=== PATIENT | male | born 1985 | race Caucasian/White ===

== ENCOUNTER 2018-06-26 00:37 | Emergency (ER) | payer OTHER ==
[2018-06-26] MEDS ORDERED: Ketorolac Tromethamine 60 MG/2 ML VIAL ONE (02:32)
--- NOTE | 2018-06-26 07:19 | OP ---
DATE OF PROCEDURE: 06/26/2018 at 0248 hours. PREPROCEDURE DIAGNOSIS: Displaced small finger metacarpal fracture with probable cast constriction a nd edema, subacute. POSTOPERATIVE DIAGNOSIS: Displaced small finger metacarpal fracture with probable cast constriction and edema, subacute. PROCEDURES PERFORMED: 1. Application of bulky hand dressing. 2. Application of palmar short arm static splint, right wrist and metacarpal region. ANESTHESIA: None. DESCRIPTION OF PROCEDURE: After successful counseling the patient, evaluation which showed no compar tment syndrome and resolving pain, the patient had 2 packs of 4 x 4s with 4 x 4s stacked into his web spaces from the first all the way through fourth to the level of the DIP joint of the small finger. Then, two Kerlix were placed to fill the space as well in a bulky-type hand dressing. We had him fl ex and extend his PIP joints and MP joints, but he still could and his pain was gone. Again, he had no stretch pain both before and after this application. We then applied a short arm splint in a palmar position, did not place him in an ulnar gutter splint because it gives him problems before. Applied Enmanuel wrap very loosely and again he was able to manipul ate and move the interphalangeal joints without pain and his numbness is gone. He had normal 2-point discrimination in color with pink digit and one second refill after the procedure.
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
== END 2018-06-26 03:08 | disposition home or self-care (01) ==
LOC: ERS 00:37
DX: S62.306A Unspecified fracture of fifth metacarpal bone, right hand, initial encounter for closed fracture (principal); F90.9 Attention-deficit hyperactivity disorder, unspecified type; I10 Essential (primary) hypertension; F17.290 Nicotine dependence, other tobacco product, uncomplicated; W22.8XXA Striking against or struck by other objects, initial encounter
CPT/HCPCS: 96372; 96374; J1885

== ENCOUNTER 2018-07-04 07:59 | Day surgery (SDC) | payer OTHER ==
[2018-07-02 10:40] VITALS: BMI 30.3
[2018-07-04 08:42] LABS: #Eosinphils 0.2 thou/uL (0.0-0.7); #Lymphocytes 2.4 thou/uL (1.20-3.40); #Monocytes 0.5 thou/uL (0.11-0.59); #Neutrophils 5.6 thou/uL (1.40-6.50); %Basophils 0.5 % (0.0-1.0); %Lymphocytes 27.3 % (21.0-51.0); %Monocytes 5.7 % (0.0-10.0); %Neutrophils 64.4 % (42.0-75.0); Hemoglobin 17.2 g/dL (14.0-18.0); Mean Corpuscular HGB CONC 30.9 g/dL (32.0-36.0); Mean Corpuscular Hemoglobin 27.3 pg (27.0-31.0); Mean Corpuscular Volume 88.2 fL (78.0-98.0); Mean Platelet Volume 7.7 fL (7.4-10.4); Platelet Count 205 thou/uL (130-400); RBC Distribution Width 13.9 % (11.5-14.5); White Blood Cell (WBC) Count 8.7 thou/uL (4.8-10.8)
[2018-07-04] MEDS ORDERED: CEFAZOLIN 2 GM/50 ML BAG ONE (09:12)
[2018-07-04] MEDS ORDERED: Ketorolac Tromethamine 30 MG/ML VIAL ONE ×2 (12:03→13:26)
[2018-07-04] MEDS ORDERED: Dexamethasone 20 MG/5 ML VIAL ONE (12:03)
[2018-07-04] MEDS ORDERED: PROPOFOL 200 MG/20 ML VIAL ONE (12:03)
[2018-07-04] MEDS ORDERED: Ondansetron PF 4 MG/2 ML Vial ONE (12:03)
[2018-07-04] MEDS ORDERED: Lidocaine 1% PF 5 ML VIAL ONE (12:03)
[2018-07-04] MEDS ORDERED: Fentanyl 100 MCG/2 ML VIAL ONE ×3 (12:09→13:45)
[2018-07-04] MEDS ORDERED: HYDROmorphone 2 MG/ML VIAL ONE (13:38)
[2018-07-04] MEDS ORDERED: diphenhydrAMINE 50 MG/ML VIAL ONE (14:08)
--- NOTE | 2018-07-06 17:37 | RAD ---
INTRAOPERATIVE FLUOROSCOPY NINE VIEWS: Exposure: 1.12 mGy*cm^2, 1.0 minute. FINDINGS: Nine fluoroscopic views demonstrate placement of T wires involving the distal fifth metacarpal. IMPRESSION: K wire placement as above. POS: CYNTHIA
--- NOTE | 2018-07-08 09:26 | OP ---
DATE OF SURGERY: 07/04/2018 PREOPERATIVE DIAGNOSIS: Displaced right small finger metacarpal fracture. OPERATIVE PROCEDURE: Closed reduction and pinning, right small finger metacarpal neck fracture. BLOOD LOSS: Less than 1 mL. SPECIMEN: None. C-ARM USED: Yes. TOURNIQUET TIME: None. FINDINGS: A 65 degrees apex, dorsal, with 2-3 mm shortening now less than 30 degrees apex dors al or less than within 10 degrees of the digits and no shortening whatsoever and no angulation or mal rotation. SURGEON: Ed White M.D. ANESTHESIA: General LMA technique augmented by 10 mL 0.5% Marcaine block given at the mid proximal t hird metacarpal level, small finger. DESCRIPTION OF PROCEDURE: After successful general LMA technique, the limb was prepped and draped. Timeout was done appropriately. The Marcaine was given. The patient underwent 3 attempts at closed reduction before we achieved what we considered to be adequate reduction as described in "postop find ings" above. We then passed K-wires from the dorsal plate grabbing the fracture, beginning extraarti cular distally and then crossing approximately 2 cm proximal to the fracture line. The K-wire positi on was confirmed sagittal plane to be adequate. There was no gross motion and did not lose pos ition. There was no malrotation and no extensor tendon translation or loss, so we bent the wires wit h 2 mm protruding and a 2 mm tip and then cut them. Bulky dressing was applied. Hemostasis obtained and an ulnar gutter splint out to the level of the DIP joint of the small finger with excellent circ ulation and position incorporating the ring and small finger. The patient left the operating room wi thout evidence of anesthetic or operative complication.
== END 2018-07-04 14:44 | disposition home or self-care (01) ==
LOC: SDC 07:59
PROVIDERS: ATTEND Orthopaedic Surgery Hand Surgery
PROC: 0PSP34Z Reposition Right Metacarpal with Internal Fixation Device, Percutaneous Approach (ICD-10-PCS; principal; 2018-07-04)
DX: S62.336A Displaced fracture of neck of fifth metacarpal bone, right hand, initial encounter for closed fracture (principal); K21.9 Gastro-esophageal reflux disease without esophagitis; F98.8 Other specified behavioral and emotional disorders with onset usually occurring in childhood and adolescence; F17.210 Nicotine dependence, cigarettes, uncomplicated; S44.91XA Injury of unspecified nerve at shoulder and upper arm level, right arm, initial encounter; Z79.1 Long term (current) use of non-steroidal anti-inflammatories (NSAID)
CPT/HCPCS: 76001; 85025; 85652; 96372; 96374; 96375; J1100; J1170; J1200; J1885; J2001; J2405; J2704; J3010

== ENCOUNTER 2019-01-06 21:08 | Emergency (ER) | payer OTHER | END 2019-01-07 01:54 | disposition left against medical advice (07) | LOC: ERS 21:08 | DX: Z53.21 Procedure and treatment not carried out due to patient leaving prior to being seen by health care provider (principal) ==

== ENCOUNTER 2020-05-04 04:02 | Observation (INO) | payer BC, OTHER, SELFPAY ==
[2020-05-04 04:42] LABS: #Lymphocytes 2.6 thou/uL (1.20-3.40); #Monocytes 0.4 thou/uL (0.11-0.59); %Basophils 0.4 % (0.0-1.0); %Eosinophils 0.4 % (0.0-10.0); %Lymphocytes 32.3 % (21.0-51.0); %Monocytes 4.8 % (0.0-10.0); Hemoglobin 17.7 g/dL (14.0-18.0); Mean Corpuscular HGB CONC 32.8 g/dL (32.0-36.0); Mean Corpuscular Hemoglobin 28.9 pg (27.0-31.0); Mean Platelet Volume 8.1 fL (7.4-10.4); Platelet Count 220 thou/uL (130-400); RBC Distribution Width 12.4 % (11.5-14.5); Red Blood Cell (RBC) Count 6.14 mill/uL (4.70-6.10); White Blood Cell (WBC) Count 8.1 thou/uL (4.8-10.8)
[2020-05-04 05:07] LABS: ALT (SGPT) 40 U/L (8-55); AST (SGOT) 32 U/L (5-34); Albumin 4.5 g/dL (3.5-5.0); Alkaline Phosphatase 51 U/L (40-110); Anion Gap 18 mmol/L (10-20); BUN (Urea Nitrogen) 7 mg/dL (8.9-20.6); Bilirubin, Total 0.5 mg/dL (0.2-1.2); Calc. Creatinine Clearance 0 mL/min (70-130); Calcium 9.3 mg/dL (7.8-10.44); Carbon Dioxide 20 mmol/L (22-29); Chloride 107 mmol/L (98-107); Estimated GFR-MDRD 88; Globulin 3.1 g/dL (2.4-3.5); Glucose 107 mg/dL (70-105); Potassium 4.1 mmol/L (3.5-5.1); Protein, Total 7.6 g/dL (6.0-8.3); Sodium 141 mmol/L (136-145)
[2020-05-04] MEDS ORDERED: Ondansetron PF 4 MG/2 ML Vial ONE (05:08)
[2020-05-04] MEDS ORDERED: Fentanyl 100 MCG/2 ML VIAL ONE (05:10)
[2020-05-04 05:14] LABS: Bilirubin Negative (Negative); Blood, Urine Negative (Negative); Clarity Clear (Clear); Glucose, Urine (Dipstick) Normal (Negative); Ketone, Urine Negative (Negative); Leukocyte Negative Leu/uL (Negative); Nitrite Negative (Negative); Protein, Urine (Dipstick) Negative (Neg-Trace); Specific Gravity, Urine 1.004 (1.002-1.036); Urobilinogen Normal mg/dL (Less than 2); pH, Urine 6.5 (5.0-9.0)
[2020-05-04 05:28] LABS: Amphetamine Detected (NotDetected); Barbiturates Screen Not Detected (NotDetected); Benzodiazepine Screen Not Detected (NotDetected); Cocaine Metabolite Screen Not Detected (NotDetected); Medtox Control Line Valid? VALID (VALID); Medtox Reader # READER 1; Methadone Not Detected (NotDetected); Methamphetamine Not Detected (NotDetected); Opiate Screen Not Detected (NotDetected); Oxycodone Screen Not Detected (NotDetected); Phencyclidine (PCP) Not Detected (NotDetected); THC/Cannabinoid Screen Detected (NotDetected); Tricyclic Screen Not Detected (NotDetected)
[2020-05-04] MEDS ORDERED: Acetaminophen 500 MG TAB ONE (05:35)
[2020-05-04] MEDS ORDERED: Dextrose 50% Abboject 50 ML SYRINGE SLOW IVP PRN (05:35)
[2020-05-04] MEDS ORDERED: Ondansetron ODT 4 MG TAB PO PRN (05:35)
[2020-05-04] MEDS ORDERED: hydrALAZINE 20 MG/ML VIAL SLOW IVP PRN (05:35)
[2020-05-04] MEDS ORDERED: Dextrose 5% in Water 1,000 ML IV PRN (05:35)
[2020-05-04] MEDS ORDERED: Acetaminophen 500 MG TAB PO PRN (05:39)
[2020-05-04] MEDS ORDERED: Sodium Chloride 0.9% 1,000 ML IV SCH (05:45)
[2020-05-04 05:46] LABS: Alcohol 210 mg/dL (Less than 10); Phosphorus 2.7 mg/dL (2.3-4.7)
[2020-05-04 05:48] LABS: Magnesium 2.1 mg/dL (1.6-2.6)
[2020-05-04] MEDS ORDERED: Boostrix 0.5 ML VIAL ONE (06:06)
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
[2020-05-04 07:34] VITALS: BMI 32.7
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
[2020-05-04] MEDS: Famotidine 20 MG TAB PO SCH ×2 (08:55→21:09)
[2020-05-04] MEDS: Senokot S 8.6-50 MG TAB PO SCH ×2 (08:56→21:10)
[2020-05-04] MEDS: Polyethylene Glycol 3350 17 GM Packet PO SCH (08:56)
[2020-05-04] MEDS: Cyclobenzaprine 10 MG TAB PO PRN ×2 (08:56→17:52)
[2020-05-04] MEDS ORDERED: Ketorolac Tromethamine 30 MG/ML VIAL IVP SCH (09:45)
[2020-05-04] MEDS ORDERED: Acetaminophen 500 MG TAB PO SCH (09:45)
[2020-05-04] MEDS: Acetaminophen 500 MG TAB PO SCH ×2 (12:14→17:51)
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
--- NOTE | 2020-05-04 14:51 | CT ---
Exam: CT angiogram of the chest HISTORY: Code Green. Chest pain. COMPARISON: None TECHNIQUE: CT angiogram of the chest is performed in the axial plane. Three-dimensional reformatted i mages are submitted for interpretation FINDINGS: Mediastinum: No mass, lymphadenopathy or hematoma. HEART: Normal size. No significant pericardial fluid. Aorta: No aneurysm or dissection Upper solid abdominal viscera: No abnormality enhancement. Trachea and central bronchi: Patent Pleural spaces: No effusion Lung parenchyma: Dependent atelectatic changes. No masses or consolidation. Pneumothorax: None Osseous structures: No lytic or blastic lesions Pulmonary arteries: Adequate contrast opacification pulmonary arterial system to the level of segment al arteries. No filling defect to suggest pulmonary embolism IMPRESSION: 1. No evidence of pulmonary artery embolism to the level of the segmental arteries.
[2020-05-04 15:54] LABS: SARS-CoV-2 MS2 Positive; SARS-CoV-2 N Gene Positive; SARS-CoV-2 S Gene Positive; SARS-CoV-2 by NAA DETECTED (NotDetected); SARS-CoV-2 orf1ab Positive
[2020-05-04] MEDS ORDERED: Iopamidol 370 76% 100 ML VIAL ONE (16:12)
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
[2020-05-04] MEDS: Sodium Chloride 0.9% 1,000 ML IV SCH (19:28)
[2020-05-04] MEDS ORDERED: Melatonin 3 MG TAB PO PRN (19:55)
[2020-05-04] MEDS ORDERED: traMADol HCl 50 MG TAB PO PRN (19:55)
[2020-05-04] MEDS: traMADol HCl 50 MG TAB PO PRN (21:10)
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
[2020-05-05] MEDS: Cyclobenzaprine 10 MG TAB PO PRN (01:07)
[2020-05-05] MEDS: Acetaminophen 500 MG TAB PO SCH ×3 (01:07→11:51)
[2020-05-05] MEDS: Sodium Chloride 0.9% 1,000 ML IV SCH (01:08)
[2020-05-05] MEDS: traMADol HCl 50 MG TAB PO PRN (05:19)
[2020-05-05 05:38] LABS: #Eosinphils 0.1 thou/uL (0.0-0.7); #Lymphocytes 2.2 thou/uL (1.20-3.40); #Monocytes 0.7 thou/uL (0.11-0.59); #Neutrophils 2.7 thou/uL (1.40-6.50); %Basophils 0.4 % (0.0-1.0); %Eosinophils 1.5 % (0.0-10.0); %Lymphocytes 38.3 % (21.0-51.0); %Monocytes 12.2 % (0.0-10.0); %Neutrophils 47.6 % (42.0-75.0); Hemoglobin 16.6 g/dL (14.0-18.0); Mean Corpuscular HGB CONC 33.5 g/dL (32.0-36.0); Mean Corpuscular Hemoglobin 30.3 pg (27.0-31.0); Mean Corpuscular Volume 90.5 fL (78.0-98.0); Mean Platelet Volume 7.4 fL (7.4-10.4); Platelet Count 170 thou/uL (130-400); RBC Distribution Width 12.4 % (11.5-14.5); Red Blood Cell (RBC) Count 5.46 mill/uL (4.70-6.10); White Blood Cell (WBC) Count 5.7 thou/uL (4.8-10.8)
[2020-05-05 06:21] LABS: Anion Gap 13 mmol/L (10-20); BUN (Urea Nitrogen) 10 mg/dL (8.9-20.6); Calc. Creatinine Clearance 154 mL/min (70-130); Calcium 8.5 mg/dL (7.8-10.44); Carbon Dioxide 23 mmol/L (22-29); Chloride 109 mmol/L (98-107); Estimated GFR-MDRD 81; Glucose 88 mg/dL (70-105); Phosphorus 3.3 mg/dL (2.3-4.7); Potassium 3.9 mmol/L (3.5-5.1); Sodium 141 mmol/L (136-145)
[2020-05-05] MEDS: Famotidine 20 MG TAB PO SCH (08:25)
[2020-05-05] MEDS ORDERED: Lisinopril 20 MG TAB PO SCH (09:00)
[2020-05-05] MEDS ORDERED: Hydrochlorothiazide 25 MG TAB PO SCH (09:00)
[2020-05-05] MEDS: Polyethylene Glycol 3350 17 GM Packet PO SCH (10:14)
[2020-05-05] MEDS: Senokot S 8.6-50 MG TAB PO SCH (10:14)
[2020-05-05 15:55] VITALS: TEMP 98.2
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
[2020-05-09 09:24] VITALS: BP 133/88
== END 2020-05-05 16:28 | disposition home or self-care (01) ==
LOC: ERS 04:02 → 2SE 05:35
PROVIDERS: ADMIT Surgery; ATTEND Surgery
DX: S06.6X9A Traumatic subarachnoid hemorrhage with loss of consciousness of unspecified duration, initial encounter (principal); U07.1 COVID-19; F10.120 Alcohol abuse with intoxication, uncomplicated; R55 Syncope and collapse; R53.1 Weakness; I10 Essential (primary) hypertension; R07.89 Other chest pain; F17.210 Nicotine dependence, cigarettes, uncomplicated; F90.9 Attention-deficit hyperactivity disorder, unspecified type; S01.511A Laceration without foreign body of lip, initial encounter; S80.812A Abrasion, left lower leg, initial encounter; S80.811A Abrasion, right lower leg, initial encounter; Z79.899 Other long term (current) drug therapy; Y90.7 Blood alcohol level of 200-239 mg/100 ml; V49.9XXA Car occupant (driver) (passenger) injured in unspecified traffic accident, initial encounter
CPT/HCPCS: 36415; 36416; 70450; 71045; 71260; 71275; 72125; 74177; 80048; 80053; 80306; 80307; 81003; 83735; 84100; 84484; 85025; 87635; 90471; 90715; 93005; 93010; 93306; 96361; 96374; 96375; G0378; G0390; J1885; J2405; J3010; Q9967; U0003